=== PATIENT | female | born 1990 | race African-American/Black ===

== ENCOUNTER 2017-10-03 11:02 | Emergency (ER) | payer MEDICAID ==
[~2017-10-03] VITALS: Ht 167.6 cm; Wt 151.0 kg
[2017-10-03 11:12] VITALS: BP 155/79
== END 2017-10-03 14:09 | disposition left against medical advice (07) ==
LOC: ER 12:13
DX: M54.2 Cervicalgia (principal); M54.9 Dorsalgia, unspecified; Z53.21 Procedure and treatment not carried out due to patient leaving prior to being seen by health care provider